=== PATIENT | male | born 1985 | race Caucasian/White ===

== ENCOUNTER 2016-02-19 14:46 | Emergency (ER) | payer OTHER ==
[~2016-02-19] VITALS: Ht 172.7 cm; Wt 190.0 kg
[2016-02-19] MEDS ORDERED: LORAZEPAM 2 MG INJ IV STA (15:03)
[2016-02-19] MEDS ORDERED: SOD CHLORIDE 0.9% 1,000 ML IV STA (15:03)
[2016-02-19 15:08] VITALS: Ht 172.7 cm; Wt 190.0 kg
[2016-02-19 15:37] LABS: BASOPHIL # 0.1 10^3/ul (0.0-0.1); BASOPHILS % 0.5 % (0.0-2.0); EOSINOPHILS # 0.1 10^3/ul (0.0-0.5); EOSINOPHILS % 1.1 % (0.0-7.0); HEMATOCRIT 42.9 % (42.0-52.0); HEMOGLOBIN 14.4 g/dl (14.0-18.0); MEAN CORPUSCULAR HGB CONC 33.6 g/dl (32.0-37.0); MEAN CORPUSCULAR VOLUME 92.2 fl (82.0-101.0); MEAN PLATELET VOLUME 7.6 fl (7.4-10.4); MONOCYTE # 0.9 10^3/ul (0.3-0.9); MONOCYTES % 9.9 % (0.0-11.0); NEUTROPHIL # 6.2 10^3/ul (1.6-7.5); NEUTROPHILS % 66.5 % (39.0-77.0); PLATELET COUNT 296 10^3/UL (140-440); RED BLOOD COUNT 4.65 10^6/ul (4.70-6.10); RED CELL DISTRIBUTION WIDTH 13.5 % (11.5-14.5); UNCORRECTED WBC 9.3 10^3/ul (4.8-10.8); WHITE BLOOD COUNT 9.3 10^3/ul (4.8-10.8)
[2016-02-19 15:39] LABS: CONDITION 1
[2016-02-19 15:54] LABS: ALBUMIN 4.3 g/dl (3.3-4.9); CHLORIDE 102 mmol/L (97-110); POTASSIUM 4.1 mmol/L (3.5-5.1); SODIUM 142 mmol/L (135-144)
[2016-02-19 15:55] LABS: ALBUMIN/GLOBULIN RATIO 1.26; ANION GAP 16 (8-16); CREATININE 0.73 mg/dl (0.61-1.24)
[2016-02-19 15:56] LABS: ALANINE AMINOTRANSFERASE 29 IU/L (13-69); ALKALINE PHOSPHATASE 79 IU/L (42-121); ASPARTATE AMINO TRANSFERASE 24 IU/L (15-46); BILIRUBIN,INDIRECT 0.6 mg/dl (0-1.1); BILIRUBIN,TOTAL 0.6 mg/dl (0.2-1.3); BLOOD UREA NITROGEN 20 mg/dl (7-20); CARBON DIOXIDE 28 mmol/L (21-31); GLUCOSE 108 mg/dl (70-220); SALICYLATE < 1.0 mg/dl (5.0-30.0); TOTAL PROTEIN 7.7 g/dl (6.1-8.1)
[2016-02-19 15:57] LABS: ACETAMINOPHEN < 10.0 ug/ml (10.0-30.0); ETHANOL < 10.0 mg/dl
[2016-02-19 16:25] LABS: ADD UMIC YES; URINE BILIRUBIN (Dip) NEGATIVE (NEGATIVE); URINE BLOOD (Dip) NEGATIVE (NEGATIVE); URINE COLOR YELLOW (YELLOW); URINE GLUCOSE (Dip) NEGATIVE (NEGATIVE); URINE KETONES (Dip) NEGATIVE (NEGATIVE); URINE LEUKOCYTE ESTERASE (Dip) TRACE (NEGATIVE); URINE NITRITE (Dip) NEGATIVE (NEGATIVE); URINE TOTAL PROTEIN (Dip) NEGATIVE (NEGATIVE); URINE UROBILINOGEN (Dip) 0.2 E.U./dL (0.1-1.0)
[2016-02-19 16:36] LABS: BACTERIA,URINE FEW; MUCUS,URINE MANY; SPERM,URINE FEW; SQUAMOUS EPITHELIAL CELL,UR RARE; URINE RBCS NONE SEEN /HPF (0)
[2016-02-19 17:00] LABS: BARBITURATES Negative (NEGATIVE); BENZODIAZEPINES Negative (NEGATIVE); CANNABINOIDS Negative (NEGATIVE); COCAINE Negative (NEGATIVE); OPIATES Negative (NEGATIVE)
[2016-02-19] MEDS ORDERED: LORAZEPAM 2 MG INJ IV ONE (17:00)
[2016-02-19] MEDS ORDERED: CIPR500T4 PO (17:06)
--- NOTE | 2016-02-19 17:06 | ERD ---
ER Documentation Chief Complaint Date/Time DATE: 02/19/16 TIME: 17:03 Chief Complaint BROUGHT IN VIA EMS DUE TO METH USE YESTERDAY HPI This is a 30-year-old male who presents to the emergency room and was brought in by [employer] for evaluation of agitation. This patient does state that he was using methamphetamine last night, he has not slept. And a was brought in because he was yelling in the middle of the street. This patient denies any homicidal ideation, denies any suicidal ideation. The patient was brought in for further evaluation. ROS All systems reviewed and are negative except as per history of present illness. Medications Home Meds No Active Prescriptions or Reported Meds Allergies Allergies: Coded Allergies: No Known Allergy (Unverified , 02/19/16) PMhx/Soc Medical and Surgical Hx: pt denies Medical Hx, pt denies Surgical Hx Hx Alcohol Use: Yes Hx Substance Use: Yes Hx Tobacco Use: Yes Smoking Status: Current every day smoker Physical Exam Vitals Vital Signs Date Time Temp Pulse Resp B/P Pulse Ox O2 Delivery O2 Flow Rate FiO2 02/19/16 15:08 98.6 114 20 144/100 100 Physical Exam Const: Disheveled appearance Head: Atraumatic Eyes: Normal Conjunctiva ENT: Dry mucous membranes, normal External Ears, Nose and Mouth. Neck: Full range of motion..~ No meningismus. Resp: Clear to auscultation bilaterally Cardio: Tachycardic,, no murmurs Abd: Soft, non tender, non distended. Normal bowel sounds Skin: No petechiae or rashes Back: No midline or flank tenderness Ext: No cyanosis, or edema Neur: Awake and alert Psych: Mild agitation Result Diagram: 02/19/16 1525 02/19/16 1525 Results 24 hrs Laboratory Tests Test 02/19/16 15:25 02/19/16 16:10 Acetaminophen Level < 10.0ug/ml Alanine Aminotransferase (ALT/SGPT) 29IU/L Albumin 4.3g/dl Albumin/Globulin Ratio 1.26 Alkaline Phosphatase 79IU/L Anion Gap 16 Aspartate Amino Transf (AST/SGOT) 24IU/L Basophils # 0.110^3/ul Basophils % 0.5% Blood Urea Nitrogen 20mg/dl Calcium Level 9.0mg/dl Carbon Dioxide Level 28mmol/L Chloride Level 102mmol/L Creatine Kinase 136IU/L Creatinine 0.73mg/dl Direct Bilirubin 0.00mg/dl Eosinophils # 0.110^3/ul Eosinophils % 1.1% Ethyl Alcohol Level < 10.0mg/dl Globulin 3.40g/dl Glucose Level 108mg/dl Hematocrit 42.9% Hemoglobin 14.4g/dl Indirect Bilirubin 0.6mg/dl Lymphocytes # 2.010^3/ul Lymphocytes % 22.0% Mean Corpuscular Hemoglobin 31.0pg Mean Corpuscular Hemoglobin Concent 33.6g/dl Mean Corpuscular Volume 92.2fl Mean Platelet Volume 7.6fl Monocytes # 0.910^3/ul Monocytes % 9.9% Neutrophils # 6.210^3/ul Neutrophils % 66.5% Nucleated Red Blood Cells # 0.010^3/ul Nucleated Red Blood Cells % 0.0/100WBC Platelet Count 42733^3/UL Potassium Level 4.1mmol/L Red Blood Count 4.6510^6/ul Red Cell Distribution Width 13.5% Salicylates Level < 1.0mg/dl Sodium Level 142mmol/L Total Bilirubin 0.6mg/dl Total Protein 7.7g/dl White Blood Count 9.310^3/ul Urine Amphetamines Screen Pending Urine Bacteria FEW Urine Barbiturates Negative Urine Benzodiazepines Screen Negative Urine Bilirubin NEGATIVE Urine Cannabinoids Negative Urine Clarity SLIGHTLY CLOUDY Urine Cocaine Screen Negative Urine Color YELLOW Urine Glucose NEGATIVE% Urine Hemoglobin NEGATIVE Urine Ketones NEGATIVE Urine Leukocyte Esterase TRACE Urine Microscopic RBC NONE SEEN/HPF Urine Microscopic WBC >50/HPF Urine Mucus MANY Urine Nitrite NEGATIVE Urine Opiates Screen Negative Urine Specific [place] >=1.030 Urine Sperm FEW Urine Squamous Epithelial Cells RARE Urine Total Protein NEGATIVE Urine Urobilinogen 0.2 E.U./dL Urine pH 5.5 Current Medications Medications (Trade) Dose Ordered Sig/Antonio Route PRN Reason Start Time Stop Time Status Last Admin Dose Admin Sodium Chloride (NS) 1,000 ml @ 1,000 mls/hr Q1H STAT IV 02/19/16 15:03 02/19/16 16:02 DC 02/19/16 15:32 Lorazepam (Ativan) 2 mg ONCE STAT IV 02/19/16 15:03 02/19/16 15:04 DC 02/19/16 15:32 Lorazepam (Ativan) 1 mg ONCE ONCE IV 02/19/16 17:00 02/19/16 17:01 DC 02/19/16 16:48 Procedures/MDM This 30-year-old male presents to the ER for evaluation of agitation. This patient does state that he was using amphetamines yesterday. He was tachycardic on my examination, mildly agitated. Patient was given 1 L of fluids , 2 mg of intravenous Ativan. I have spoken to the patient's mother was at bedside and I have advised her that this patient's symptoms are direct consequence of his drug abuse. This patient is denying any homicidal ideation or suicidal ideation. His mother states that she feels safe taking him home. This patient will be discharged into the care of his mother at this time. He was subsequently found to have urinary tract infection. He was given ciprofloxacin by mouth in the emergency room and will be discharged home with a prescription for ciprofloxacin. Departure Diagnosis: Primary Impression: Amphetamine abuse Additional Impression: Acute cystitis Condition: Stable BREN BRANDT DO Feb 19, 2016 17:06
[2016-02-19 17:22] VITALS: BP 113/79; PULSE 79; RESP 19; TEMP 97.9
[2016-02-19] MEDS ORDERED: CIPROFLOXACIN 500 MG TAB PO ONE (17:30)
== END 2016-02-19 17:23 | disposition home or self-care (01) ==
LOC: E/R 14:46
DX: F15.10 Other stimulant abuse, uncomplicated (principal); N30.00 Acute cystitis without hematuria; F17.210 Nicotine dependence, cigarettes, uncomplicated
CPT/HCPCS: 80053; 80303; 80320; 80329; 81001; 81003; 82550; 82553; 84484; 85025; J2060; J7030; 36415; 96374; 96376; G0478; G0479